=== PATIENT | male | born 1960 | race Caucasian/White ===

== ENCOUNTER → 2017-02-12 | Outpatient (REF) | payer BC ==
[~2017-02-12] MED LIST: EXCETAB81 PO; FISH500C PO; NEXI40CA PO; OMEP40CA2 PO; REGL10TA6 PO; SERT50TA PO; SUCR1TA PO; TRAM50TA2 PO; VITA100T86 PO; [UNRECOGNIZED DRUG - CODE] PO
[2017-02-12 14:45] LABS: ALBUMIN 3.9 GM/DL (3.2-5.2); ALKALINE PHOSPHATASE 61 U/L (45-117); ALT/SGPT 31 U/L (12-78); ANION GAP 7 MEQ/L (8-16); AST/SGOT 15 U/L (15-37); BILIRUBIN,TOTAL 0.7 MG/DL (0.2-1.0); BLOOD UREA NITROGEN 20 MG/DL (7-18); CALCIUM LEVEL 9.2 MG/DL (8.5-10.1); CARBON DIOXIDE LEVEL 27 MEQ/L (21-32); CHLORIDE LEVEL 105 MEQ/L (98-107); CREATININE FOR GFR 0.78 MG/DL (0.70-1.30); FREE T4 1.23 NG/DL (0.76-1.46); GLOMERULAR FILTRATION RATE > 60.0 (>56); GLUCOSE, FASTING 88 MG/DL (70-105); POTASSIUM SERUM 4.2 MEQ/L (3.5-5.1); SODIUM LEVEL 139 MEQ/L (136-145); TOTAL PROTEIN 6.9 GM/DL (6.4-8.2)
[2017-02-12 15:05] LABS: ESTRADIOL 28.6 PG/ML (<39.8)
[2017-02-14 00:06] LABS: PSA TOTAL 0.8 ng/mL (0.0-4.0)
== END ==
LOC: M LAB REF 13:54
PROVIDERS: ATTEND Obstetrics & Gynecology
DX: R53.83 Other fatigue (principal); R63.5 Abnormal weight gain; E34.9 Endocrine disorder, unspecified

== ENCOUNTER → 2017-03-25 | Outpatient (REF) | payer BC ==
[2017-03-25 20:31] LABS: LUTEINIZING HORMONE 0.8 mIU/mL (1.5-9.3); PROGESTERONE < 0.2 NG/ML (0.28-1.22)
[2017-03-25 20:32] LABS: ESTRADIOL 26.9 PG/ML (<39.8); FOLLICLE STIMULATING HORMONE 0.7 mIU/mL (1.4-18.1)
== END ==
LOC: M LAB REF 15:34
PROVIDERS: ATTEND Obstetrics & Gynecology
DX: R68.82 Decreased libido (principal); E34.9 Endocrine disorder, unspecified

== ENCOUNTER 2018-07-28 13:44 | Emergency (ER) | payer BC ==
[~2018-07-28] VITALS: Ht 182.9 cm; Wt 95.5 kg
[2018-07-28] MEDS ORDERED: SERT25TA88 (13:50)
[2018-07-28] MEDS ORDERED: VENTAER (13:50)
[2018-07-28] MEDS ORDERED: SERT-138 (13:50)
[2018-07-28] MEDS ORDERED: ARNU1INH (13:50)
[2018-07-28 14:16] LABS: BASO % 0.4 % (0.0-1.0); EOS # 0.1 10^3/uL (0.0-0.50); EOS % 0.6 % (0.0-3.0); HEMATOCRIT 48.4 % (42.0-52.0); HEMOGLOBIN 17.7 g/dl (13.5-17.5); LYMPH # 0.8 10^3/uL (1.5-4.5); LYMPH % 6.7 % (24.0-44.0); MEAN CORPUSCULAR HEMOGLOBIN 31.7 pg (27.0-33.0); MEAN CORPUSCULAR HGB CONC 36.6 g/dl (32.0-36.5); MEAN CORPUSCULAR VOLUME 86.6 fl (80.0-96.0); MONO # 1.3 10^3/uL (0.0-0.8); MONO % 11.3 % (0.0-5.0); NEUTROPHILS # 9.1 10^3/uL (1.8-7.7); NEUTROPHILS % 80.6 % (36.0-66.0); PLATELET COUNT, AUTOMATED 237 10^3/uL (150-450); RED BLOOD COUNT 5.59 10^6/uL (4.30-6.10); WHITE BLOOD COUNT 11.3 10^3/uL (4.0-10.0)
[2018-07-28 14:42] LABS: ALBUMIN 3.8 GM/DL (3.2-5.2); ALT/SGPT 45 U/L (12-78); BILIRUBIN,DIRECT 0.2 MG/DL (0.0-0.2); BILIRUBIN,TOTAL 0.6 MG/DL (0.2-1.0); BLOOD UREA NITROGEN 19 MG/DL (7-18); CALCIUM LEVEL 8.9 MG/DL (8.5-10.1); CARBON DIOXIDE LEVEL 25 MEQ/L (21-32); CHLORIDE LEVEL 102 MEQ/L (98-107); CREATININE FOR GFR 1.31 MG/DL (0.70-1.30); GLOMERULAR FILTRATION RATE > 60.0 (>56); GLUCOSE, FASTING 117 MG/DL (70-100); LIPASE 138 U/L (73-393); POTASSIUM SERUM 3.5 MEQ/L (3.5-5.1); SODIUM LEVEL 138 MEQ/L (136-145); TOTAL PROTEIN 7.1 GM/DL (6.4-8.2)
[2018-07-28] MEDS ORDERED: NS 1,000 ML IV ONE (15:00)
[2018-07-28] MEDS ORDERED: KETOROLAC 30 MG/ML VIAL (J1885) IV ONE (15:00)
--- NOTE | 2018-07-28 15:57 | REP ---
Clinical: Right flank pain. Technique: Axial noncontrast images from the lung bases to the pubic symphysis with coronal and sagittal re-formations. Findings: Moderate acute right-sided obstructive uropathy with edematous enlargement to the right kidney along with moderate perinephric and periureteral stranding secondary to a 3 mm calculus at the verge of the ureterovesicle junction within the bladder (images [id number]). Multiple bilateral nonobstructing intrarenal calculi are also appreciated up to 5-6 mm along with elements of cortical scarring involving the left kidney. Liver, spleen, pancreas, gallbladder, and bilateral adrenal glands are normal for noncontrast evaluation. The enteric system is without obstruction or acute inflammatory process. Normal terminal ileum and appendix are identified in the right lower quadrant. Scattered colonic diverticula noted without acute diverticulitis. Pelvis demonstrates relatively normal bladder (as above) and mildly prominent prostate gland. No ascites. No free air. No adenopathy. Abdominal aorta without aneurysm. Musculoskeletal structures demonstrate age-related degenerative changes. Lung bases are clear. Impression: 1. Moderate acute right-sided obstructive uropathy with a 3 mm calculus at the verge of the ureterovesicle junction which may be about to pass into the bladder. Nonobstructing bilateral intrarenal calculi up to 5-6 mm. 2. Diverticulosis without acute diverticulitis. Electronically Signed by Benedicto Puckett MD 07/28/2018 03:48 P
[2018-07-28] MEDS ORDERED: ZOFR4TAB14 PO (16:08)
[2018-07-28] MEDS ORDERED: FLOM0.4C39 PO (16:08)
[2018-07-28] MEDS ORDERED: IBUP-1022 PO (16:08)
[2018-07-28 16:42] VITALS: BP 140/92
== END 2018-07-28 17:20 | disposition home or self-care (01) ==
LOC: M ED 13:44
DX: N21.1 Calculus in urethra (principal); N23 Unspecified renal colic; J44.9 Chronic obstructive pulmonary disease, unspecified; Z87.891 Personal history of nicotine dependence; N13.30 Unspecified hydronephrosis
CPT/HCPCS: 74176; 80048; 80076; 81001; 83690; 85025; 96361; 96374; 99284; J1885

== ENCOUNTER 2020-02-18 12:56 | Inpatient (IN) | payer BC, OTHER ==
[~2020-02-18] VITALS: Ht 185.4 cm; Wt 89.9 kg
[~2020-02-18 12:56] MED LIST changes: +ARNU1INH; +FLOM0.4C39 PO; +IBUP-1022 PO; -OMEP40CA2 PO; +OMEP40CA97 PO; +SERT-138; +SERT-141 PO; +SERT25TA21; -SERT50TA PO; +VENTAER INH; +ZOFR4TAB14 PO
[2020-02-18 13:48] LABS: BASO % 0.3 % (0.0-1.0); EOS # 0.1 10^3/uL (0.0-0.5); EOS % 0.7 % (0.0-3.0); HEMOGLOBIN 18.3 g/dl (13.5-17.5); LYMPH % 7.1 % (24.0-44.0); MEAN CORPUSCULAR HEMOGLOBIN 31.1 pg (27.0-33.0); MEAN CORPUSCULAR HGB CONC 34.5 g/dl (32.0-36.5); MONO # 1.4 10^3/uL (0.0-0.8); MONO % 9.8 % (0.0-5.0); NEUTROPHILS # 11.5 10^3/uL (1.5-8.5); NEUTROPHILS % 81.6 % (36.0-66.0); PLATELET COUNT, AUTOMATED 264 10^3/uL (150-450); RED BLOOD COUNT 5.89 10^6/uL (4.30-6.10); WHITE BLOOD COUNT 14.1 10^3/uL (4.0-10.0)
[2020-02-18] MEDS ORDERED: EXCETAB22 PO (14:02)
[2020-02-18 14:07] LABS: ALBUMIN 3.2 GM/DL (3.2-5.2); ALT/SGPT 94 U/L (12-78); BILIRUBIN,DIRECT 0.6 MG/DL (0.0-0.2); BILIRUBIN,TOTAL 1.4 MG/DL (0.2-1.0); BLOOD UREA NITROGEN 23 MG/DL (7-18); CALCIUM LEVEL 9.1 MG/DL (8.5-10.1); CARBON DIOXIDE LEVEL 24 MEQ/L (21-32); CHLORIDE LEVEL 99 MEQ/L (98-107); CREATININE FOR GFR 0.85 MG/DL (0.70-1.30); GLOMERULAR FILTRATION RATE > 60.0 (>56); GLUCOSE, FASTING 102 MG/DL (70-100); LIPASE 111 U/L (73-393); POTASSIUM SERUM 3.3 MEQ/L (3.5-5.1); SODIUM LEVEL 135 MEQ/L (136-145); TOTAL PROTEIN 7.4 GM/DL (6.4-8.2)
[2020-02-18] MEDS ORDERED: MORPHINE 2 MG/ML 1ML VIAL (J2270) IV ONE (14:15)
[2020-02-18] MEDS ORDERED: NS 1,000 ML IV ONE (14:15)
[2020-02-18] MEDS ORDERED: PIPERACILLIN/TAZOBACTAM SOD 3.375 GM in D5W MINI-BAG PLUS 50 ML IV ONE (15:30)
[2020-02-18] MEDS ORDERED: MORPHINE 4 MG/ML 1ML VIAL/SYRINGE (J2270) IV PRN (16:45)
--- NOTE | 2020-02-18 17:19 | REP ---
REASON: Right flank pain. COMPARISON: 07/28/2018 Subsegmental atelectatic changes are seen in the lung bases. There are multiple bilateral nonobstructing nephroliths. There is an unchanged right renal cyst. There is no hydronephrosis or hydroureter. There are no urinary bladder calcifications. Limited evaluation of the solid intra-abdominal organs and gallbladder shows no gross abnormalities or significant changes from the prior exam. Limited evaluation of the abdominal aorta and para-aortic regions shows no significant changes from prior exam. There is no free fluid or free air in the abdomen or pelvis. The appendix is dilated, and there is significant fatty infiltration in the mesoappendix and in the surrounding mesentery as well. The osseous structures are stable and intact. IMPRESSION: 1. Acute appendicitis. 2. Bilateral nonobstructing nephroliths. 3. Unchanged simple right renal cyst. 4. Other findings as described above. Electronically Signed by Santosh Villalta DO 02/19/2020 11:21 A
[2020-02-18] MEDS ORDERED: NS 1,000 ML IV SCH (17:36)
[2020-02-18] MEDS ORDERED: KETOROLAC 30 MG/ML 1ML VIAL IV PRN (18:00)
[2020-02-18] MEDS ORDERED: MORPHINE 2 MG/ML 1ML VIAL (J2270) As Ordered ONE (18:49)
[2020-02-18] MEDS: MORPHINE 2 MG/ML 1ML VIAL (J2270) IV PRN (18:53)
[2020-02-18] MEDS ORDERED: SUGAMMADEX SODIUM 500 MG/5 ML VIAL (BRIDION) As Ordered ONE (20:33)
[2020-02-18] MEDS ORDERED: dexameTHASONE 4 MG/ML 1ML VIAL (J1100 PER 1MG) As Ordered ONE (20:33)
[2020-02-18] MEDS ORDERED: fentaNYL 100 MCG/2 ML INJECTION (J3010) As Ordered ONE ×2 (20:33→21:34)
[2020-02-18] MEDS ORDERED: ONDANSETRON 4MG/2ML VIAL As Ordered ONE (20:33)
[2020-02-18] MEDS ORDERED: LIDOCAINE 2% 100MG/5ML SDV (FOR ANES.) As Ordered ONE (20:33)
[2020-02-18] MEDS ORDERED: propofoL 200 MG/20 ML VIAL As Ordered ONE (20:33)
[2020-02-18] MEDS ORDERED: ROCURONIUM BROMIDE 50 MG/5 ML VIAL As Ordered ONE ×2 (20:33→21:59)
[2020-02-18] MEDS ORDERED: MIDAZOLAM INJ 2MG/2ML VIAL (J2250 PER 1MG) As Ordered ONE (20:34)
[2020-02-18] MEDS ORDERED: BUPIVACAINE HCL 0.25% 30ML VIAL As Ordered ONE (21:18)
[2020-02-18] MEDS ORDERED: ZOSYN 3.375GM VIAL (J2543) As Ordered ONE (21:18)
[2020-02-18] MEDS: PIPERACILLIN/TAZOBACTAM SOD 3.375 GM in D5W MINI-BAG PLUS 50 ML IV SCH (22:00)
[2020-02-18] MEDS ORDERED: ACETAMINOPHEN 1000MG 100ML IV BTL (OFIRMEV) (J0131 PER 10MG) As Ordered ONE (22:13)
[2020-02-18] MEDS ORDERED: fentaNYL 100 MCG/2 ML INJECTION (J3010) IV PRN (23:45)
[2020-02-18] MEDS ORDERED: oxyCODONE 5MG TAB PO PRN (23:45)
[2020-02-18] MEDS ORDERED: ONDANSETRON 4MG/2ML VIAL IV PRN (23:45)
[2020-02-18] MEDS ORDERED: ACETAMINOPHEN TAB 650MG DOSE (2X325MG) PO PRN (23:45)
[2020-02-18] MEDS ORDERED: LR 1,000 ML IV SCH (23:45)
[2020-02-19] VITALS (10 sets, daily range): BP systolic 130–164; BP diastolic 81–103
[2020-02-19] MEDS: PIPERACILLIN/TAZOBACTAM SOD 3.375 GM in D5W MINI-BAG PLUS 50 ML IV SCH ×4 (04:15→22:40)
[2020-02-19] MEDS: PANTOPRAZOLE 40MG VIAL (C9113 PER 1) IV SCH (08:50)
[2020-02-19] MEDS: MORPHINE 2 MG/ML 1ML VIAL (J2270) IV PRN (08:51)
[2020-02-19 09:41] LABS: BASO % 0.1 % (0.0-1.0); HEMATOCRIT 44.8 % (42.0-52.0); HEMOGLOBIN 15.7 g/dl (13.5-17.5); LYMPH # 0.6 10^3/uL (1.5-5.0); MEAN CORPUSCULAR HEMOGLOBIN 31.9 pg (27.0-33.0); MEAN CORPUSCULAR VOLUME 91.1 fl (80.0-96.0); NEUTROPHILS # 12.9 10^3/uL (1.5-8.5); NEUTROPHILS % 88.4 % (36.0-66.0); PLATELET COUNT, AUTOMATED 283 10^3/uL (150-450); RED BLOOD COUNT 4.92 10^6/uL (4.30-6.10); WHITE BLOOD COUNT 14.6 10^3/uL (4.0-10.0)
[2020-02-19 09:48] LABS: BLOOD UREA NITROGEN 21 MG/DL (7-18); CALCIUM LEVEL 8.2 MG/DL (8.5-10.1); CARBON DIOXIDE LEVEL 27 MEQ/L (21-32); CHLORIDE LEVEL 103 MEQ/L (98-107); CREATININE FOR GFR 0.74 MG/DL (0.70-1.30); GLOMERULAR FILTRATION RATE > 60.0 (>56); GLUCOSE, FASTING 115 MG/DL (70-100); POTASSIUM SERUM 3.9 MEQ/L (3.5-5.1); SODIUM LEVEL 139 MEQ/L (136-145)
[2020-02-19] MEDS: NORCO, ANEXSIA 5/325MG TABLET (HYDROcodone/ACETAMINOPHEN) PO PRN (20:16)
--- NOTE | 2020-02-19 20:30 | IPN ---
DATE: 02/19/2020 HISTORY: The patient underwent a laparoscopic appendectomy for perforated appendicitis with abscess last evening. He had presented with a 3-day history of worsening right lower quadrant pain that he had thought was likely from a recurrence of a renal stone. A drain was left in the right lower quadrant extending into the pelvis because of the local contamination in that area. He has been continued on piperacillin/tazobactam. He was allowed to take some sips of water, ice chips only. He denies any nausea or vomiting. He reports he has passed some flatus. Vital signs: Show that his temperature has been no higher than 99.7 since his surgery. His pulse is in the 70s to as high as the low one 100s. Blood pressure is good, and his room air oxygen saturation is fine. Intake and output shows that he had 3000 in yesterday with 140 recorded out, 40 of drainage from his drain and 100 mL of blood loss. Urine output was not recorded. Today he has had 20 mL from his drain and 500 mL of urine output. PHYSICAL EXAMINATION: The patient is alert and oriented. He does not recall our conversation in the recovery room where I had described for him his findings and the plan to keep him in the hospital for several days on antibiotics. Heart exam shows a regular rate and rhythm. The lungs are clear. The abdomen is perhaps mildly full. He does have some bowel sounds present. His dressings are clean and dry. The drain has a small amount of serous fluid in the bottle. He remains quite tender in the right lower quadrant where he had fairly extensive inflammation noted. Laboratory studies this morning show a white count of 14.6, which is slightly higher than his preop level. Hemoglobin 16 with hematocrit of 45, and the platelet count is 283,000. He has a left shift with 88% neutrophils, but no bands were recorded. Chemistry profile showed normal electrolytes with a BUN of 21, creatinine 0.7 and a glucose of 115. IMPRESSION: The patient is now postop day #1 from laparoscopic appendectomy for perforated appendicitis. He has a drain in the area where his abscess had been identified. He remains on Zosyn. He has been afebrile, though his white count remains elevated. He has tolerated some sips of water and ice chips. PLAN: The patient will be advanced to full liquids, and if he tolerates these, he can be advanced to regular food this evening. He will remain on his Zosyn. I will check a CBC with a differential again in the morning. He was counseled that because of the perforation and peritonitis that he is at significant risk for development of an abscess, and will, therefore, be kept in the hospital for close observation and continuation of his intravenous antibiotics. When he has remained afebrile with return of his white blood cell count to normal and decrease of his pain to minimal levels, he can be discharged. I will be turning his care over to my partner, Dr. Moser, as I will be going on vacation starting effective the end of business today. EDITH
[2020-02-19] MEDS ORDERED: diphenhydrAMINE 25MG CAP PO ONE (23:15)
[2020-02-19] MEDS ORDERED: SIMETHICONE 80 MG CHEW TAB PO PRN (23:15)
[2020-02-20] MEDS: MORPHINE 2 MG/ML 1ML VIAL (J2270) IV PRN (03:21)
[2020-02-20] MEDS: PIPERACILLIN/TAZOBACTAM SOD 3.375 GM in D5W MINI-BAG PLUS 50 ML IV SCH ×4 (04:44→22:23)
[2020-02-20 06:00] VITALS: BP 145/92
[2020-02-20 06:30] LABS: BASO # 0.1 10^3/uL (0.0-0.2); BASO % 0.6 % (0.0-1.0); EOS # 0.3 10^3/uL (0.0-0.5); EOS % 3.2 % (0.0-3.0); HEMATOCRIT 42.7 % (42.0-52.0); HEMOGLOBIN 14.7 g/dl (13.5-17.5); LYMPH # 1.4 10^3/uL (1.5-5.0); MEAN CORPUSCULAR HEMOGLOBIN 31.1 pg (27.0-33.0); MEAN CORPUSCULAR HGB CONC 34.4 g/dl (32.0-36.5); MEAN CORPUSCULAR VOLUME 90.5 fl (80.0-96.0); MONO # 1.2 10^3/uL (0.0-0.8); MONO % 12.3 % (0.0-5.0); NEUTROPHILS # 6.8 10^3/uL (1.5-8.5); NEUTROPHILS % 69.1 % (36.0-66.0); PLATELET COUNT, AUTOMATED 270 10^3/uL (150-450); RED BLOOD COUNT 4.72 10^6/uL (4.30-6.10); WHITE BLOOD COUNT 9.9 10^3/uL (4.0-10.0)
[2020-02-20] MEDS: PANTOPRAZOLE 40MG VIAL (C9113 PER 1) IV SCH (08:37)
--- NOTE | 2020-02-20 09:20 | ECGEPIP ---
[facility] - ED Test Date: 2020-02-18 Pat Name: JF MULTANI Department: Room: [place] [address] Gender: Male Gin Inspector: mary beth : [id number] Requested By: JENNIFER ADAMS Order Number: [id number] Reading MD: Kevin Silvestre Measurements Intervals [place] Rate: 115 P: 50 NH: 152 QRS: 30 QRSD: 97 T: 29 QT: 359 QTc: 497 Interpretive Statements SINUS TACHYCARDIA INCOMPLETE RIGHT BUNDLE BRANCH BLOCK BASELINE ARTIFACT AFFECTS INTERPRETATION NO PRIORS FOR COMPARISON Electronically Signed on 02-20-2020 9:20:40 EDT by Kevin Silvestre
[2020-02-20] MEDS: IBUPROFEN 600MG TAB PO PRN (11:03)
--- NOTE | 2020-02-20 11:38 | IPNPDOC ---
Text Note Date of Service The patient was seen on 02/20/20. NOTE Patient reports had a difficult night, was having lots of heartburn type symp toms and epigastric discomfort, mildly nauseated. He feels better this morning Though he still reports significant discomfort over the right lower quadrant area on movement. He currently denies any nausea and is tolerating full liquids. Vital signs He is afebrile I/O JIMMIE drainage 50 mL serosanguineous fluid On examination Patient overall looks uncomfortable though during palpation he was in a lot of discomfort over the right lower quadrant palpation Skin is warm and moist Heart rate and rhythm are regular without murmurs Abdomen is soft, mildly distended, still significantly tender over the right lower quadrant area. He has a right-sided JIMMIE drain with mostly light colored serous sanguinous fluid No significant extremity edema Impression and plan He is now postop day 2 following laparoscopic appendectomy for perforated appendicitis I will advance him to soft diet. He is instructed to ambulate. So far is not showing much symptoms for systemic inflammatory response and his leukocytosis has resolved this point. He still has significant discomfort over the right lower quadrant area which could be from the drain or from the left over inflammation at the site of appendicitis. He will see how he does the rest of the day. Potentially we'll be able to go home tomorrow on oral antibiotics with or without the drain. VS,Luis Felipee, I+O VS, Luis Felipee, I+O Laboratory Tests 02/20/20 06:04 Vital Signs Date Time Temp Pulse Resp B/P (MAP) Pulse Ox O2 Delivery O2 Flow Rate FiO2 02/20/20 06:00 98.9 77 20 145/92 (109) 96 Room Air 02/19/20 00:15 2.0 I&O- Last 24 Hours up to 6 AM 02/20/20 05:59 Intake Total 2285 ml Output Total 30 ml Balance 2255 ml ROMEO MILLAN MD Feb 20, 2020 11:38
[2020-02-20 14:00] VITALS: BP 141/87
[2020-02-20 20:00] VITALS: BP 150/90
[2020-02-20] MEDS: NORCO, ANEXSIA 5/325MG TABLET (HYDROcodone/ACETAMINOPHEN) PO PRN (22:23)
[2020-02-21] MEDS: PIPERACILLIN/TAZOBACTAM SOD 3.375 GM in D5W MINI-BAG PLUS 50 ML IV SCH ×2 (04:17→09:28)
[2020-02-21 06:02] VITALS: BP 153/98
[2020-02-21 06:52] LABS: BASO # 0.1 10^3/uL (0.0-0.2); BASO % 0.9 % (0.0-1.0); EOS # 0.7 10^3/uL (0.0-0.5); HEMOGLOBIN 16.6 g/dl (13.5-17.5); LYMPH # 1.4 10^3/uL (1.5-5.0); MEAN CORPUSCULAR HEMOGLOBIN 31.1 pg (27.0-33.0); MEAN CORPUSCULAR HGB CONC 33.9 g/dl (32.0-36.5); MEAN CORPUSCULAR VOLUME 91.9 fl (80.0-96.0); MONO # 1.3 10^3/uL (0.0-0.8); MONO % 11.9 % (0.0-5.0); NEUTROPHILS # 7.3 10^3/uL (1.5-8.5); NEUTROPHILS % 67.3 % (36.0-66.0); PLATELET COUNT, AUTOMATED 309 10^3/uL (150-450); RED BLOOD COUNT 5.33 10^6/uL (4.30-6.10); WHITE BLOOD COUNT 10.8 10^3/uL (4.0-10.0)
[2020-02-21] MEDS: PANTOPRAZOLE 40MG VIAL (C9113 PER 1) IV SCH (09:28)
[2020-02-21] MEDS: IBUPROFEN 600MG TAB PO PRN (09:29)
[2020-02-21 10:00] VITALS: BP 153/98
[2020-02-21] MEDS ORDERED: HYDR-3715 PO (12:54)
[2020-02-21] MEDS ORDERED: IBUP-1022 PO (12:54)
[2020-02-21] MEDS: NORCO, ANEXSIA 5/325MG TABLET (HYDROcodone/ACETAMINOPHEN) PO PRN (13:35)
[2020-02-21 14:00] VITALS: BP 150/98
--- NOTE | 2020-06-07 07:21 | RO ---
DATE OF OPERATION: 02/18/2020 PREOPERATIVE DIAGNOSIS: Acute appendicitis. POSTOPERATIVE DIAGNOSIS: Perforated appendicitis with abscess. PROCEDURE: Laparoscopic appendectomy with debridement of abscess. SURGEON: Oskar Concepcion MD ANESTHESIA: General INDICATIONS FOR THE PROCEDURE: The patient is a 59-year-old man who presented to the emergency department with three days of abdominal pain becoming localized in the right lower quadrant. He was found to have an elevated white blood cell count to 14,000. A CT scan showed appendicitis with significant inflammatory changes in the right lower quadrant and pelvis. He is now for a laparoscopic appendectomy. OPERATIVE PROCEDURE: The patient was brought to the operating room and placed on the table in a supine position. He was placed under general endotracheal anesthesia. The patient's abdomen was prepped and draped in a sterile fashion. 25% Marcaine was infiltrated at each of the trocar sites as needed. A short supraumbilical midline incision was made and deepened to the fascia. A Veress needle was inserted; and after positive hanging drop test, the abdomen was inflated with carbon dioxide gas. A short longitudinal incision was made and an 11 mm trocar was inserted. The laparoscope was placed and it was immediately clear that there was significant inflammation in the right lower quadrant. There were some adhesions of the omentum and bowel to the anterior abdominal wall. The peritoneum was quite reddened. Two 5 mm ports were placed in the left lower quadrant. The patient was tilted to a slight reverse Trendelenburg position. As the inflammatory attachments of the bowel and omentum to the abdominal wall were broken apart, it was clear that there was inflammatory debris and exudate in the right lower quadrant and the upper portion of the pelvis in particular. Some inflammatory adhesions of the omentum to the underlying terminal ileum were broken apart and the terminal ileum was rotated superiorly. There was a lot of exudate and debris surrounding the inferior aspect of the cecum and the terminal ileum. There was a clearly a purulence in this area and this area was suctioned and irrigated. The appendix was identified lying on the retroperitoneum. This was gasped and elevated and there was clearly a perforation proximally in the mid portion of the appendix. The debris from this area was irrigated and suctioned. The appendix was elevated. The mesoappendix was divided down to the base using primarily the hook cautery. It was possible to expose the base of the appendix and this was stapled with a 45 mm endoscopic linear cutter stapler. The appendix was placed in an Endopouch. The right lower quadrant was then copiously irrigated. Inspection revealed that there was much exudate and debris on the sigmoid colon as it looped out of the pelvis, as well as collection of fluid down in the pelvis. These areas were all irrigated. I tried to remove as much as of the exudate as possible using graspers. The area was then copiously irrigated again to remove any debris. Once the area had been cleaned as much as possible, the patient was returned to a flat position. I elected to place a drain, so a small stab wound was made in the far lateral aspect of the right side of the abdomen. A 19 [place] drain was inserted through the 11 mm supraumbilical port and grasped with a clamp through the right lateral abdominal incision. The drain was placed into the paracolic gutter and then extended down through the area where the appendix had been and into the pelvis on the right. The drain was sutured to the skin with a 2-0 silk. At this point, the abdomen was deflated and the trocars were removed. The appendix was recovered through the supraumbilical site, which required extending the fascial incision and the skin incision slightly. The appendix was sent for permanent pathology. The fascia was then closed with interrupted simple sutures of 2-0 Vicryl. The skin incisions were closed with buried 4-0 Vicryl and Steri-Strips. The drain site was dressed with a CHG OpSite dressing and connected to a [place] bulb. The other wounds were dressed with 2 x 2s. The patient tolerated the procedure well without apparent complications other than his obvious perforation. He was awakened in the operating room, extubated and moved to the recovery room in stable condition. EDITH
== END 2020-02-21 15:00 | disposition home or self-care (01) | DRG 225 ==
LOC: M ED 12:56 → M SDC 17:42 → M ED INP 23:43 → M MS5PR 02-19 00:09
PROVIDERS: ADMIT Surgery; ATTEND Surgery
PROC: 0DTJ4ZZ Resection of Appendix, Percutaneous Endoscopic Approach (ICD-10-PCS; principal; 2020-02-18 19:30)
DX: K35.32 Acute appendicitis with perforation, localized peritonitis, and gangrene, without abscess (principal); R10.13 Epigastric pain; R12 Heartburn; R11.0 Nausea; Z11.59 Encounter for screening for other viral diseases

== ENCOUNTER → 2020-06-02 | Outpatient (REF) | payer OTHER ==
[~2020-06-02] MED LIST changes: +EXCETAB22 PO; +HYDR-3715 PO
== END ==
LOC: M LAB REF 16:25
PROVIDERS: ATTEND Registered Nurse
DX: R53.83 Other fatigue (principal)

== ENCOUNTER → 2020-06-15 | Outpatient (REF) | payer OTHER ==
--- NOTE | 2020-07-07 12:14 | DSES ---
DISCHARGE SUMMARY DATE OF ADMISSION: 02/18/2020 DATE OF DISCHARGE: 02/21/2020 ADMITTING DIAGNOSIS: Acute appendicitis. HISTORY OF PRESENT ILLNESS: The patient is a 59-year-old man with a three day history of abdominal pain, which had become localized in the right lower quadrant. He presented to the emergency department (ED) for evaluation and was found to have tenderness in the right lower quadrant, which was moderate to severe in intensity. His laboratory studies showed a white count of 14,000. His CT scan revealed findings consistent with appendicitis. He was admitted for a laparoscopic appendectomy. HOSPITAL COURSE: The patient was brought to the operating room on February 17. He was found to have perforated appendicitis with a abscess. He underwent laparoscopic appendectomy with debridement of his abscess and a drain was placed. The patient was converted to an inpatient status. His antibiotics were continued. He was started on a liquid diet, which was advanced full liquids on postop day 1 and subsequently to a regular diet. He tolerated food acceptably. His Zosyn was continued. His drain output diminished. His white count had returned to normal by the . Pathology confirmed suppurative appendicitis with focal perforation and periappendiceal abscess formation. His drain output diminished and this was removed on the February 20. He was doing well at that point and was discharged home on the February 21, 2020. FINAL DIAGNOSES: 1. Acute appendicitis with perforation and abscess. 2. History of renal stones. 3. Depression. PROCEDURE PEFORMED: Laparoscopic appendectomy with drainage of abscess. DISPOSITION: He was discharged home on the February 21, 2020. DISCHARGE INSTRUCTIONS: He was to call the office on the following Saturday to arrange a follow up in two weeks. He could pursue light activity, but was advised against any strenuous activity for a week. He could take a diet as tolerated and shower as desired. He was provided a prescription for [place] to take on an as needed basis for pain. He was advised to take ibuprofen as needed for a lesser pain. He was to call the office for any problems. EDITH
== END ==
LOC: M SMT 12:59
PROVIDERS: ATTEND Urology
DX: N20.0 Calculus of kidney (principal)

== ENCOUNTER → 2021-09-20 | Outpatient (REF) | payer BC ==
[~2021-09-20] MED LIST changes: +OMEP40CA4 PO; -OMEP40CA97 PO
== END ==
LOC: M LAB REF 12:05
PROVIDERS: ATTEND Registered Nurse
DX: M13.0 Polyarthritis, unspecified (principal)

== ENCOUNTER → 2021-11-05 | Outpatient (REF) | payer BC | LOC: M LAB REF 15:00 | PROVIDERS: ATTEND Physician Assistant Medical | DX: R05.9 Cough, unspecified (principal); R50.9 Fever, unspecified ==

== ENCOUNTER → 2022-02-16 | Outpatient (CLI) | payer BC | LOC: M RAD 15:13 | PROVIDERS: ATTEND Physician Assistant | DX: R06.2 Wheezing (principal); R06.02 Shortness of breath ==

== ENCOUNTER → 2022-03-22 | Outpatient (CLI) | payer BC ==
[~2022-03-22] MED LIST changes: +CETI-24; +OMEP40CA5; +PRED20TA
== END ==
LOC: M LABSMTC 10:45
PROVIDERS: ATTEND Anesthesiology
DX: Z11.52 Encounter for screening for COVID-19 (principal); Z20.822 Contact with and (suspected) exposure to COVID-19

== ENCOUNTER 2022-03-26 09:49 | Day surgery (SDC) | payer BC ==
[~2022-03-26] VITALS: Ht 182.9 cm; Wt 94.8 kg
[~2022-03-26 09:49] MED LIST changes: +LIDOCAINE 2% 100MG/5ML SDV (FOR ANES.) As Ordered ONE; +NS 1,000 ML IV ONE; +propofoL 200 MG/20 ML VIAL As Ordered ONE
[2022-03-26 12:20] VITALS: BP 118/74
== END 2022-03-26 12:38 | disposition home or self-care (01) ==
LOC: M OPP 09:49
PROVIDERS: ATTEND Internal Medicine Gastroenterology
DX: Z12.11 Encounter for screening for malignant neoplasm of colon (principal); K57.30 Diverticulosis of large intestine without perforation or abscess without bleeding; K64.0 First degree hemorrhoids; K31.89 Other diseases of stomach and duodenum; K22.89 Other specified disease of esophagus; G47.33 Obstructive sleep apnea (adult) (pediatric); J44.9 Chronic obstructive pulmonary disease, unspecified; Z79.1 Long term (current) use of non-steroidal anti-inflammatories (NSAID); Z79.82 Long term (current) use of aspirin; Z79.899 Other long term (current) drug therapy; Z87.891 Personal history of nicotine dependence

== ENCOUNTER → 2022-07-03 | Outpatient (CLI) | payer BC ==
[~2022-07-03] MED LIST changes: -LIDOCAINE 2% 100MG/5ML SDV (FOR ANES.) As Ordered ONE; -NS 1,000 ML IV ONE; -propofoL 200 MG/20 ML VIAL As Ordered ONE
== END ==
LOC: M CARPUL 11:23
PROVIDERS: ATTEND Internal Medicine Critical Care Medicine
DX: R06.00 Dyspnea, unspecified (principal)

== ENCOUNTER 2023-09-18 07:54 | Day surgery (SDC) | payer BC ==
[~2023-09-18] VITALS: Ht 182.9 cm; Wt 97.9 kg
[2023-09-18] MEDS: BSS IRRIG/VANCO(10MG)/TOBRA(5MG)/EPINEPH(1:1000-0.5CC)500ML BAG-ORONLY As Ordered ONE (06:52)
[~2023-09-18 07:54] MED LIST changes: +BUDE10.2 INH; +ESOM40CA35 PO; +MONT10TA97 PO; +PANT40TA29 PO
[2023-09-18] MEDS: OFLOXACIN 0.3 % (OCUFLOX) OPTH SOL 5ML OD ONE (08:14)
[2023-09-18] MEDS: LIDOCAINE 3.5 % 1ML OPHTH TOPICAL GEL OU ONE (08:15)
[2023-09-18] MEDS: TROPICAMIDE 1% OPHTH SOLN 15ML OD SCH (08:15)
[2023-09-18] MEDS: PHENYLEPHRINE 2.5% OPHTH SOL 2ML OD SCH (08:15)
[2023-09-18] MEDS: PHENYLEPHRINE 10% OPHTH SOL 5ML OD PRN (08:15)
[2023-09-18] MEDS: CYCLOPENTOLATE 1% OPHTH SOLN 2ML BTL OD SCH (08:15)
[2023-09-18] MEDS: LIDOCAINE 1% SDV 5ML VIAL As Ordered ONE (08:44)
[2023-09-18] MEDS: CEFUROXIME 1MG/0.1ML INTRACAMERAL INJ As Ordered ONE (09:02)
[2023-09-18] MEDS ORDERED: MIDAZOLAM INJ 2MG/2ML VIAL As Ordered ONE (09:06)
[2023-09-18 09:10] VITALS: BP 136/83; TEMP 97.5; O2SAT 96
== END 2023-09-18 09:27 | disposition home or self-care (01) ==
LOC: M SDC 07:54
PROVIDERS: ATTEND Ophthalmology
DX: H25.11 Age-related nuclear cataract, right eye (principal); H57.03 Miosis; G47.30 Sleep apnea, unspecified; K21.9 Gastro-esophageal reflux disease without esophagitis; Z79.899 Other long term (current) drug therapy
CPT/HCPCS: 66982; 92015; J0697; J2250; V2788

== ENCOUNTER 2023-09-25 08:07 | Day surgery (SDC) | payer BC ==
[~2023-09-25] VITALS: Ht 182.9 cm; Wt 96.2 kg
[~2023-09-25 08:07] MED LIST changes: +PHENYLEPHRINE 10% OPHTH SOL 5ML OS PRN
[2023-09-25] MEDS: CYCLOPENTOLATE 1% OPHTH SOLN 2ML BTL OS SCH (08:16)
[2023-09-25] MEDS: LIDOCAINE 3.5 % 1ML OPHTH TOPICAL GEL OU ONE (08:17)
[2023-09-25] MEDS: TROPICAMIDE 1% OPHTH SOLN 15ML OS SCH (08:17)
[2023-09-25] MEDS: OFLOXACIN 0.3 % (OCUFLOX) OPTH SOL 5ML OS ONE (08:17)
[2023-09-25] MEDS: PHENYLEPHRINE 2.5% OPHTH SOL 2ML OS SCH (08:17)
[2023-09-25] MEDS: BSS IRRIG/VANCO(10MG)/TOBRA(5MG)/EPINEPH(1:1000-0.5CC)500ML BAG-ORONLY As Ordered ONE (08:56)
[2023-09-25] MEDS: LIDOCAINE 1% SDV 5ML VIAL As Ordered ONE (08:56)
[2023-09-25] MEDS: CEFUROXIME 1MG/0.1ML INTRACAMERAL INJ As Ordered ONE (08:57)
[2023-09-25] MEDS ORDERED: MIDAZOLAM INJ 2MG/2ML VIAL As Ordered ONE (09:06)
[2023-09-25] MEDS ORDERED: fentaNYL 100 MCG/2 ML INJECTION As Ordered ONE (09:06)
[2023-09-25 09:14] VITALS: BP 130/78; TEMP 98.1; O2SAT 93
== END 2023-09-25 09:35 | disposition home or self-care (01) ==
LOC: M SDC 08:07
PROVIDERS: ATTEND Ophthalmology
DX: H25.12 Age-related nuclear cataract, left eye (principal); G47.30 Sleep apnea, unspecified; Z98.41 Cataract extraction status, right eye; K21.9 Gastro-esophageal reflux disease without esophagitis; Z79.899 Other long term (current) drug therapy; Z90.49 Acquired absence of other specified parts of digestive tract
CPT/HCPCS: 66984; 92015; J0697; J2250; J3010; V2788

== ENCOUNTER 2023-11-08 10:25 | Emergency (ER) | payer BC ==
[~2023-11-08] VITALS: Ht 182.9 cm; Wt 96.4 kg
[~2023-11-08 10:25] MED LIST changes: -PHENYLEPHRINE 10% OPHTH SOL 5ML OS PRN
[2023-11-08] MEDS ORDERED: IBUP-1022 PO (10:38)
[2023-11-08] MEDS: NS 1,000 ML IV ONE (13:39)
[2023-11-08] MEDS: PANTOPRAZOLE 40MG VIAL IV ONE (13:40)
[2023-11-08] MEDS ORDERED: ISOVUE-370 76% 100ML VIAL As Ordered ONE (13:47)
[2023-11-08 13:52] LABS: BASO # 0.1 10^3/uL (0.0-0.2); BASO % 0.5 % (0.0-1.0); EOS # 0.2 10^3/uL (0.0-0.5); EOS % 2.1 % (0.0-3.0); HEMOGLOBIN 16.6 g/dl (13.5-17.5); LYMPH # 1.2 10^3/uL (1.5-5.0); LYMPH % 12.6 % (24.0-44.0); MEAN CORPUSCULAR HEMOGLOBIN 31.1 pg (27.0-33.0); MEAN CORPUSCULAR HGB CONC 35.3 g/dl (32.0-36.5); MEAN CORPUSCULAR VOLUME 88.2 fl (80.0-96.0); MONO # 0.8 10^3/uL (0.0-0.8); NEUTROPHILS % 75.5 % (36.0-66.0); PLATELET COUNT, AUTOMATED 255 10^3/uL (150-450); RED BLOOD COUNT 5.33 10^6/uL (4.30-6.10); WHITE BLOOD COUNT 9.3 10^3/uL (4.0-10.0)
[2023-11-08 14:16] LABS: ALBUMIN 3.2 G/DL (3.2-5.2); BILIRUBIN,DIRECT 0.3 MG/DL (<0.4); BILIRUBIN,TOTAL 0.7 MG/DL (0.3-1.2); TOTAL PROTEIN 6.8 G/DL (5.7-8.2)
[2023-11-08] MEDS: ACETAMINOPHEN *IV* 1,000 MG in IV 1 EA IV ONE (14:22)
[2023-11-08] MEDS ORDERED: EXCETAB32 PO (15:02)
[2023-11-08] MEDS ORDERED: HOME MED LIST COMPLETE! XX SCH (15:05)
[2023-11-08] MEDS ORDERED: KETO10TAB PO (15:34)
[2023-11-08] MEDS ORDERED: OXYC1TAB23 PO (15:34)
[2023-11-08] MEDS ORDERED: FLOM0.4C39 PO (15:34)
[2023-11-08 15:59] VITALS: BP 158/98; TEMP 98.2; O2SAT 97
== END 2023-11-08 16:05 | disposition home or self-care (01) ==
LOC: M ED 10:25
DX: N20.1 Calculus of ureter (principal); Z79.1 Long term (current) use of non-steroidal anti-inflammatories (NSAID); Z79.899 Other long term (current) drug therapy; Z79.2 Long term (current) use of antibiotics
CPT/HCPCS: 74177; 80047; 80076; 81001; 83690; 85025; 96361; 96365; 96374; 99284; C9113; J0131; Q9967

== ENCOUNTER → 2025-03-31 | Outpatient (REF) | payer BC ==
[~2025-03-31] MED LIST changes: +EXCETAB32 PO; -FLOM0.4C39 PO; -IBUP-1022 PO; +IBUP600T42 PO; +KETO10TAB PO; +OXYC1TAB23 PO; +TAMS-18 PO
[2025-04-04 00:02] LABS: TESTOSTERONE FREE (DIRECT) 74.4 pg/mL (35.0-155.0); TESTOSTERONE TOTAL FOR T&D 695.0 ng/dL (250-1100)
== END ==
LOC: M LAB REF 11:54
PROVIDERS: ATTEND Nurse Practitioner Family
DX: Z79.899 Other long term (current) drug therapy (principal); R53.83 Other fatigue

== ENCOUNTER → 2025-05-24 | Outpatient (CLI) | payer BC | LOC: M SLEEP HO 10:59 | PROVIDERS: ATTEND Internal Medicine Critical Care Medicine | DX: G47.33 Obstructive sleep apnea (adult) (pediatric) (principal) ==